=== PATIENT | male | born 1980 | race Caucasian/White ===

== ENCOUNTER 2021-07-01 16:29 | Emergency (ER) | payer SELFPAY ==
[~2021-07-01] VITALS: Ht 175.3 cm; Wt 88.5 kg
== END 2021-07-01 18:25 | disposition home or self-care (01) ==
LOC: ED 16:29
DX: T15.02XA Foreign body in cornea, left eye, initial encounter (principal)
CPT/HCPCS: 65222; 99283-25

== ENCOUNTER 2021-10-27 07:08 | Emergency (ER) | payer SELFPAY ==
[~2021-10-27] VITALS: Ht 175.3 cm; Wt 93.4 kg
[2021-10-27] MEDS ORDERED: CEPHALEXIN500 M1 PO (07:41)
== END 2021-10-27 07:50 | disposition home or self-care (01) ==
LOC: ED 07:08
DX: S91.331A Puncture wound without foreign body, right foot, initial encounter (principal); W45.8XXA Other foreign body or object entering through skin, initial encounter
CPT/HCPCS: 73630; 99283-25; A9270

== ENCOUNTER 2021-11-28 19:59 | Emergency (ER) | payer SELFPAY ==
[~2021-11-28] VITALS: Ht 152.4 cm; Wt 93.4 kg
[~2021-11-28 19:59] MED LIST: CEPHALEXIN500 M1 PO
== END 2021-11-28 21:04 | disposition home or self-care (01) ==
LOC: ED 19:59
DX: A54.9 Gonococcal infection, unspecified (principal)
CPT/HCPCS: 96372; 99283; J0696